=== PATIENT | male | born 1970 | race Caucasian/White ===

== ENCOUNTER 2023-05-09 07:44 | Emergency (ER) | payer MEDICAID ==
[~2023-05-09] VITALS: Ht 167.6 cm; Wt 106.8 kg
[2023-05-09 08:13] LABS: BASOPHILS # (AUTO) 0.1 X10'3 (0-0.2); BASOPHILS % (AUTO) 1.5 % (0-1); EOSINOPHILS # (AUTO) 0.1 X10'3 (0-0.9); EOSINOPHILS % (AUTO) 2.9 % (0-6); HEMOGLOBIN 9.7 g/dl (14.0-17.9); LYMPHOCYTES # (AUTO) 0.7 X10'3 (1.1-4.8); LYMPHOCYTES % (AUTO) 21.9 % (21-51); MEAN CORPUSCULAR HGB CONC 32.2 g/dL (33.0-36.5); MEAN CORPUSCULAR VOLUME 83.9 FL (78-98); MEAN PLATELET VOLUME 8.5 FL (7.4-10.4); MONOCYTES # (AUTO) 0.4 X10'3 (0-0.9); MONOCYTES % (AUTO) 13.2 % (2-12); NEUTROPHILS # (AUTO) 2.1 X10'3 (1.8-7.7); NEUTROPHILS % (AUTO) 60.5 % (42-75); PLATELET COUNT 93 X10'3 (140-440); RED BLOOD COUNT 3.58 X10'6 (4.70-6.10); RED CELL DISTRIBUTION WIDTH 16.1 % (11.5-14.5); WHITE BLOOD COUNT 3.4 X10'3 (4.5-11.0)
[2023-05-09 08:25] LABS: ALANINE AMINOTRANSFERASE 45 U/L (12-78); ALBUMIN 3.1 G/DL (3.4-5.0); ALBUMIN/GLOBULIN RATIO 0.8 (1.1-1.5); ALKALINE PHOSPHATASE 199 IU/L (46-116); ANION GAP 11 (8-16); ASPARTATE AMINO TRANSFERASE 38 U/L (10-37); BILIRUBIN,TOTAL 1.9 MG/DL (0.1-1.0); BLOOD UREA NITROGEN 10 MG/DL (7-18); BUN/CREATININE RATIO 10.6 (10.0-20.0); CALCIUM 9.9 MG/DL (8.5-10.1); CHLORIDE 106 MMOL/L (99-107); CREATININE 0.94 MG/DL (0.60-1.10); GLUCOSE 249 MG/DL (70-104); POTASSIUM 4.1 MMOL/L (3.5-5.1); SODIUM 138 MMOL/L (135-145); TOTAL CARBON DIOXIDE 21.4 MMOL/L (24-32); TOTAL PROTEIN 6.8 G/DL (6.4-8.2); eGFR 84 ML/MIN
[2023-05-09] MEDS ORDERED: furosemide 10 MG/1 ML 10ml inj IV ONE (08:55)
[2023-05-09 10:29] VITALS: BP 132/64
[2023-05-09] MEDS ORDERED: POTA-192 PO (10:58)
[2023-05-09] MEDS ORDERED: GLIP10TA11 PO (10:58)
[2023-05-09] MEDS ORDERED: METF-436 PO (10:58)
[2023-05-09] MEDS ORDERED: METO-384 PO (10:58)
[2023-05-09] MEDS ORDERED: SITA25TA3 PO (10:58)
[2023-05-09] MEDS ORDERED: FURO-150 PO (10:58)
[2023-05-09] MEDS ORDERED: SEMA1PEN3 SQ (10:58)
[2023-05-09] MEDS ORDERED: LISI10TA27 PO (10:58)
== END 2023-05-09 11:04 | disposition home or self-care (01) ==
LOC: ER 07:45
DX: I10 Essential (primary) hypertension (principal); K74.60 Unspecified cirrhosis of liver; J90 Pleural effusion, not elsewhere classified; E78.00 Pure hypercholesterolemia, unspecified; E11.9 Type 2 diabetes mellitus without complications; Z79.899 Other long term (current) drug therapy
CPT/HCPCS: 36415; 71045; 74176; 76705; 80053; 83880; 84484; 85025; 93005; 96374; 99285; J1940

== ENCOUNTER 2023-10-24 12:35 | Emergency (ER) | payer MEDICAID ==
[~2023-10-24] VITALS: Ht 170.2 cm; Wt 108.4 kg
[~2023-10-24 12:35] MED LIST: GLIP10TA11 PO; LISI10TA27 PO; METF-436 PO; METO-384 PO; SEMA1PEN3 SQ
[2023-10-24 13:16] LABS: BASOPHILS % (AUTO) 0.7 % (0-1); EOSINOPHILS # (AUTO) 0.1 X10'3 (0-0.9); EOSINOPHILS % (AUTO) 2.9 % (0-6); HEMATOCRIT 32.4 % (42.0-52.0); HEMOGLOBIN 10.7 g/dl (14.0-17.9); LYMPHOCYTES # (AUTO) 0.8 X10'3 (1.1-4.8); LYMPHOCYTES % (AUTO) 16.8 % (21-51); MEAN CORPUSCULAR HEMOGLOBIN 26.7 PG (27.0-31.0); MEAN CORPUSCULAR HGB CONC 33.1 g/dL (33.0-36.5); MEAN CORPUSCULAR VOLUME 80.7 FL (78-98); MEAN PLATELET VOLUME 8.4 FL (7.4-10.4); MONOCYTES # (AUTO) 0.4 X10'3 (0-0.9); MONOCYTES % (AUTO) 7.6 % (2-12); NEUTROPHILS # (AUTO) 3.4 X10'3 (1.8-7.7); PLATELET COUNT 117 X10'3 (140-440); RED BLOOD COUNT 4.01 X10'6 (4.70-6.10); RED CELL DISTRIBUTION WIDTH 19.6 % (11.5-14.5); WHITE BLOOD COUNT 4.7 X10'3 (4.5-11.0)
[2023-10-24 13:39] LABS: ANISOCYTOSIS 2+; PLATELET ESTIMATE DECREASED
[2023-10-24 13:40] LABS: ALANINE AMINOTRANSFERASE 41 U/L (12-78); ALBUMIN 2.8 G/DL (3.4-5.0); ALBUMIN/GLOBULIN RATIO 0.7 (1.1-1.5); ALKALINE PHOSPHATASE 233 IU/L (46-116); ANION GAP 7 (8-16); ASPARTATE AMINO TRANSFERASE 34 U/L (10-37); BLOOD UREA NITROGEN 6 MG/DL (7-18); BUN/CREATININE RATIO 7.8 (10.0-20.0); BURR CELLS FEW; CALCIUM 9.2 MG/DL (8.5-10.1); CHLORIDE 105 MMOL/L (99-107); CREATININE 0.77 MG/DL (0.60-1.10); ELLIPTOCYTES FEW; GLUCOSE 184 MG/DL (70-104); POTASSIUM 3.6 MMOL/L (3.5-5.1); SCHISTOCYTES FEW; SODIUM 138 MMOL/L (135-145); TOTAL PROTEIN 7.1 G/DL (6.4-8.2); eCRCL 105 ML/MIN; eGFR > 90 ML/MIN
[2023-10-24 13:46] LABS: LIPASE 65 U/L (16-77); PRO BRAIN NATRIURETIC PEPTIDE 92 PG/ML (0-125)
[2023-10-24] MEDS ORDERED: carVEDilol 3.125mg tablet PO ONE (22:20)
[2023-10-24 22:21] VITALS: BP_DIAS 94; O2SAT 97
[2023-10-24 22:22] VITALS: RESP 17
[2023-10-24] MEDS ORDERED: furosemide 20MG tablet PO ONE (22:25)
[2023-10-24] MEDS ORDERED: spironolactone 25 MG tablet PO ONE (22:25)
[2023-10-24] MEDS ORDERED: GLIP10TA21 PO (22:31)
[2023-10-24] MEDS ORDERED: SITA100T15 PO (22:31)
[2023-10-24] MEDS ORDERED: CARV6.253 PO (22:31)
[2023-10-24] MEDS ORDERED: SEMA1PEN3 SUBCUT (22:31)
[2023-10-24] MEDS ORDERED: FURO-150 PO (22:31)
[2023-10-24] MEDS ORDERED: ROSU5TAB12 PO (22:31)
[2023-10-24] MEDS ORDERED: METF-900 PO (22:31)
[2023-10-24] MEDS ORDERED: EMPA25TA PO (22:31)
[2023-10-24 22:47] VITALS: BP_SYST 176; PULSE 94
[2023-10-25 04:46] VITALS: TEMP 98.5
== END 2023-10-25 04:47 | disposition home or self-care (01) ==
LOC: ER 12:35
DX: K74.60 Unspecified cirrhosis of liver (principal); E11.9 Type 2 diabetes mellitus without complications; I10 Essential (primary) hypertension; E78.00 Pure hypercholesterolemia, unspecified; Z91.148 Patient's other noncompliance with medication regimen for other reason; Z79.899 Other long term (current) drug therapy
CPT/HCPCS: 36415; 71045; 80053; 82140; 83690; 83880; 84484; 85008; 85025; 99284

== ENCOUNTER 2025-02-10 09:36 | Inpatient (IN) | payer MEDICAID ==
[~2025-02-10] VITALS: Ht 167.6 cm; Wt 97.6 kg
[~2025-02-10 09:36] MED LIST changes: +CARV6.253 PO; +EMPA25TA PO; +GLIP-299 PO; -GLIP10TA11 PO; +GLIP10TA18 PO; +ROSU5TAB51 PO; +SEMA1PEN3 SUBCUT
[2025-02-10 10:29] LABS: BASOPHILS % (AUTO) 0.6 % (0-1); EOSINOPHILS # (AUTO) 0.2 X10'3 (0-0.9); EOSINOPHILS % (AUTO) 2.8 % (0-6); HEMATOCRIT 34.5 % (42.0-52.0); HEMOGLOBIN 11.5 g/dl (14.0-17.9); LYMPHOCYTES # (AUTO) 1.1 X10'3 (1.1-4.8); LYMPHOCYTES % (AUTO) 18.4 % (21-51); MEAN CORPUSCULAR HEMOGLOBIN 28.3 PG (27.0-31.0); MEAN CORPUSCULAR HGB CONC 33.4 g/dL (33.0-36.5); MEAN CORPUSCULAR VOLUME 84.9 FL (78-98); MEAN PLATELET VOLUME 8.8 FL (7.4-10.4); MONOCYTES # (AUTO) 0.4 X10'3 (0-0.9); NEUTROPHILS # (AUTO) 4.1 X10'3 (1.8-7.7); NEUTROPHILS % (AUTO) 71.2 % (42-75); PLATELET COUNT 111 X10'3 (140-440); RED BLOOD COUNT 4.06 X10'6 (4.70-6.10); RED CELL DISTRIBUTION WIDTH 17.5 % (11.5-14.5); WHITE BLOOD COUNT 5.8 X10'3 (4.5-11.0)
[2025-02-10 10:45] LABS: ALANINE AMINOTRANSFERASE 32 U/L (12-78); ALBUMIN/GLOBULIN RATIO 0.8 (1.1-1.5); ALKALINE PHOSPHATASE 209 IU/L (46-116); ANION GAP 9 (8-16); ASPARTATE AMINO TRANSFERASE 27 U/L (10-37); BILIRUBIN,TOTAL 2.1 MG/DL (0.1-1.0); BLOOD UREA NITROGEN 15 MG/DL (7-18); BUN/CREATININE RATIO 10.2 (10.0-20.0); CALCIUM 9.5 MG/DL (8.5-10.1); CHLORIDE 111 MMOL/L (99-107); CREATININE 1.47 MG/DL (0.60-1.10); GLUCOSE 140 MG/DL (70-104); POTASSIUM 4.9 MMOL/L (3.5-5.1); SODIUM 141 MMOL/L (135-145); TOTAL CARBON DIOXIDE 20.6 MMOL/L (24-32); TOTAL PROTEIN 6.8 G/DL (6.4-8.2); eCRCL 52 ML/MIN; eGFR 50 ML/MIN
[2025-02-10 12:59] LABS: BILIRUBIN,URINE NEGATIVE (Neg); CLARITY,URINE CLEAR (Clear); COLOR,URINE YELLOW (Yellow); GLUCOSE, URINE >=1000 mg/dl (Neg); KETONES,URINE NEGATIVE (Neg); LEUKOCYTE ESTERASE ,URINE NEGATIVE (Neg); NITRITES, URINE NEGATIVE (Neg); OCCULT BLOOD,URINE MODERATE (Neg); PROTEIN,URINE 100 mg/dl (Neg); UROBILINOGEN,URINE 0.2 E.U/dL (0.2-1.0)
[2025-02-10 13:07] LABS: UA COLLECTION TYPE NON-SPECIFIED
[2025-02-10 13:11] LABS: BACTERIA,URINE FEW /HPF (Neg); MUCUS STRANDS NONE SEEN /LPF (Neg); SQUAMOUS EPITHELIAL CELL,UR NONE SEEN /LPF (FEW); WBC,URINE 0-4 /HPF (0-4)
[2025-02-10 13:20] LABS: URINE AMPHETAMINE SCREEN NEGATIVE (Neg); URINE BARBITUATE SCREEN NEGATIVE (Neg); URINE BENZODIAZEPINES SCREEN NEGATIVE (Neg); URINE CANNABINOID SCREEN POSITIVE (Neg); URINE COCAINE SCREEN NEGATIVE (Neg); URINE METHADONE SCREEN NEGATIVE (Neg); URINE OPIATE SCREEN NEGATIVE (Neg); URINE PHENCYCLIDINE SCREEN NEGATIVE (Neg)
[2025-02-10] MEDS ORDERED: potassium Cl 40MEQ/1/2NS 520ml 520 ML IV PRN (13:50)
[2025-02-10] MEDS ORDERED: potassium Cl 20 mEq SR tablet PO PRN ×2 (13:50)
[2025-02-10] MEDS ORDERED: magnesium hydroxide 30ml (MOM) UD suspension PO PRN (13:50)
[2025-02-10] MEDS ORDERED: magnesium sulf-water 2g/50mL 50 ML IV PRN (13:50)
[2025-02-10] MEDS ORDERED: ondansetron/PF 4mg/2ml inj IV PRN (13:50)
[2025-02-10] MEDS ORDERED: ondansetron 4mg rapidly disintigrating tab PO PRN (13:50)
[2025-02-10] MEDS ORDERED: mag hydrox/Alum hydrox/simeth 30ml oral suspension PO PRN (13:50)
[2025-02-10] MEDS ORDERED: magnesium sulf-water 4G/100mL 100 ML IV PRN (13:50)
[2025-02-10 14:09] LABS: INR 1.1 INR; PROTHROMBIN TIME 11.4 SECONDS (9.0-12.0)
[2025-02-10] MEDS ORDERED: dextrose 50%-water 50ml dispensing syringe IV PRN ×2 (14:30)
[2025-02-10] MEDS ORDERED: glucagon, human recombinant 1mg kit SUBCUT PRN (14:30)
[2025-02-10] MEDS ORDERED: DEXTROSE 15 GM of carb/4 tabs (each vial/BOTTLE has 4 tablets) PO PRN ×2 (14:30)
[2025-02-10 15:02] LABS: PRO BRAIN NATRIURETIC PEPTIDE 106 PG/ML (0-125)
[2025-02-10 15:20] LABS: ETHANOL < 10 MG/DL (<10)
[2025-02-10 15:25] VITALS: BP 169/79; PULSE 63; RESP 18; TEMP 99.7; O2SAT 100
[2025-02-10] MEDS: propranolol 10mg tablet PO ONE (16:22)
[2025-02-10] MEDS: ringers solution, lacted 1,000 ML IV SCH (16:22)
[2025-02-10 16:26] VITALS: RESP 16; O2SAT 100
[2025-02-10] MEDS: INSULIN LISPRO 100 UNIT/ML INSULN.PEN MULTI-DOSE SQ SCH (17:00)
[2025-02-10] MEDS ORDERED: hydrALAZINE 20mg/ml inj. IV PRN (17:00)
[2025-02-10 18:00] VITALS: BP 160/78; PULSE 89; RESP 16; TEMP 98.1; O2SAT 98
[2025-02-10] MEDS: docusate sod 100mg capsule PO SCH (20:00)
[2025-02-10] MEDS: K and/or MAG REPLACEMENT MC SCH (20:00)
[2025-02-10] MEDS: CefTRIAXone 2gm/D5W 50ml BAG 50 ML IV ONE (20:48)
[2025-02-10] MEDS: heparin, porcine 5000 units/ml vial SQ SCH (20:49)
[2025-02-10] MEDS: lactulose 20gm/30ml cup PO SCH (20:49)
[2025-02-10] MEDS: propranolol 10mg tablet PO SCH (20:51)
[2025-02-10] MEDS ORDERED: CARV-50 PO (21:11)
[2025-02-10] MEDS ORDERED: FURO-149 PO (21:12)
[2025-02-10] MEDS ORDERED: SITA100T11 PO (21:12)
[2025-02-10] MEDS ORDERED: TIRZ7.5P SQ (21:15)
[2025-02-10] MEDS ORDERED: VALS160T30 PO (21:15)
[2025-02-10] MEDS ORDERED: EPLE25TA10 PO (21:17)
[2025-02-10 22:00] VITALS: BP 131/63; PULSE 83; RESP 13; TEMP 97.6; O2SAT 98
[2025-02-11 06:14] LABS: BASOPHILS % (AUTO) 0.8 % (0-1); EOSINOPHILS # (AUTO) 0.1 X10'3 (0-0.9); EOSINOPHILS % (AUTO) 2.6 % (0-6); HEMOGLOBIN 9.4 g/dl (14.0-17.9); LYMPHOCYTES # (AUTO) 0.9 X10'3 (1.1-4.8); MEAN CORPUSCULAR HEMOGLOBIN 28.6 PG (27.0-31.0); MEAN CORPUSCULAR HGB CONC 33.5 g/dL (33.0-36.5); MEAN CORPUSCULAR VOLUME 85.3 FL (78-98); MEAN PLATELET VOLUME 8.9 FL (7.4-10.4); MONOCYTES # (AUTO) 0.4 X10'3 (0-0.9); MONOCYTES % (AUTO) 9.2 % (2-12); NEUTROPHILS # (AUTO) 2.8 X10'3 (1.8-7.7); NEUTROPHILS % (AUTO) 66.4 % (42-75); PLATELET COUNT 78 X10'3 (140-440); RED BLOOD COUNT 3.28 X10'6 (4.70-6.10); WHITE BLOOD COUNT 4.2 X10'3 (4.5-11.0)
[2025-02-11 06:19] LABS: ALANINE AMINOTRANSFERASE 25 U/L (12-78); ALBUMIN 2.3 G/DL (3.4-5.0); ALBUMIN/GLOBULIN RATIO 0.8 (1.1-1.5); ALKALINE PHOSPHATASE 135 IU/L (46-116); ANION GAP 7 (8-16); ASPARTATE AMINO TRANSFERASE 18 U/L (10-37); BILIRUBIN,TOTAL 2.5 MG/DL (0.1-1.0); BLOOD UREA NITROGEN 16 MG/DL (7-18); BUN/CREATININE RATIO 12.7 (10.0-20.0); CHLORIDE 114 MMOL/L (99-107); CHOLESTEROL 148 MG/DL (0-200); CREATININE 1.26 MG/DL (0.60-1.10); GLUCOSE 111 MG/DL (70-104); HDL CHOLESTEROL 49 MG/DL (35-60); LDL CHOLESTEROL 92 MG/DL (50-100); MAGNESIUM 1.8 MG/DL (1.5-2.4); POTASSIUM 4.4 MMOL/L (3.5-5.1); SODIUM 143 MMOL/L (135-145); TOTAL CARBON DIOXIDE 22.3 MMOL/L (24-32); TOTAL PROTEIN 5.2 G/DL (6.4-8.2); TRIGLYCERIDES 57 MG/DL (20-135); eCRCL 60 ML/MIN; eGFR 60 ML/MIN
[2025-02-11 06:55] VITALS: BP 160/87; PULSE 76; RESP 14; TEMP 98.6; O2SAT 98
[2025-02-11 06:57] LABS: HEMOGLOBIN A1C 6.2 % (4.5-6.2)
[2025-02-11] MEDS: CefTRIAXone 2gm/D5W 50ml BAG 50 ML IV SCH (07:31)
[2025-02-11] MEDS: amLODIPine 5mg tablet PO SCH (07:32)
[2025-02-11] MEDS: EMPAGLIFLOZIN 25 MG TABLET PO SCH (07:32)
[2025-02-11] MEDS: acetaminophen 325mg tablet PO PRN (07:40)
[2025-02-11 08:00] VITALS: RESP 15; O2SAT 97
[2025-02-11] MEDS: losartan 50mg tablet PO STA (08:56)
[2025-02-11] MEDS: HYDROchlorothiazide 25mg tablet PO ONE (08:56)
[2025-02-11] MEDS ORDERED: LOSA50TA64 PO (09:46)
[2025-02-11] MEDS ORDERED: PROP10TA10 PO (09:46)
[2025-02-11] MEDS ORDERED: CEFD300C3 PO (09:46)
[2025-02-11] MEDS ORDERED: NOR5T PO (09:46)
[2025-02-11] MEDS ORDERED: HYDR25TA4 PO (09:46)
[2025-02-11 09:48] VITALS: BP 150/70
[2025-02-11 10:00] VITALS: BP 160/79; PULSE 77; RESP 17; TEMP 97.9; O2SAT 98
[2025-02-12] MEDS ORDERED: HYDROchlorothiazide 25mg tablet PO SCH (08:00)
[2025-02-12] MEDS ORDERED: losartan 50mg tablet PO SCH (08:00)
[2025-02-12 09:12] LABS: HBSAG SCREEN Negative (Negative); HEP A AB, IGM Negative (Negative); HEP B CORE AB, IGM Negative (Negative); HEP B SURF AB Reactive (.); HEPATITIS C VIRUS ANTIBODY Non Reactive (Non Reactive)
== END 2025-02-11 11:10 | disposition home or self-care (01) | DRG 52 ==
LOC: ER 09:37 → ED HOLD 13:55 → ORTHO 4S 15:12
PROVIDERS: ADMIT Nurse Practitioner Family; ATTEND Nurse Practitioner Family
DX: G93.41 Metabolic encephalopathy (principal); K76.82 Hepatic encephalopathy; N17.9 Acute kidney failure, unspecified; N18.9 Chronic kidney disease, unspecified; K74.60 Unspecified cirrhosis of liver; E11.22 Type 2 diabetes mellitus with diabetic chronic kidney disease; I12.9 Hypertensive chronic kidney disease with stage 1 through stage 4 chronic kidney disease, or unspecified chronic kidney disease; N18.30 Chronic kidney disease, stage 3 unspecified; E78.00 Pure hypercholesterolemia, unspecified; F10.20 Alcohol dependence, uncomplicated; F19.90 Other psychoactive substance use, unspecified, uncomplicated; I16.1 Hypertensive emergency; E66.811 Obesity, class 1; Z68.34 Body mass index [BMI] 34.0-34.9, adult; Z79.84 Long term (current) use of oral hypoglycemic drugs; Z79.899 Other long term (current) drug therapy; Z87.891 Personal history of nicotine dependence
CPT/HCPCS: 36415; 70450; 71046; 76705; 80053; 80061; 80305; 80320; 81001; 82140; 82948; 83036; 83605; 83735; 83880; 84145; 85025; 85610; 86705; 86706; 86709; 86803; 87081; 87340; 87522; 93005; 93880; 97116; 97161; 97530; 99285; G0378; J0696; J1644; J1815; J7120

== ENCOUNTER 2025-06-28 09:56 | Emergency (ER) | payer MEDICAID ==
[~2025-06-28] VITALS: Ht 165.1 cm; Wt 102.0 kg
[~2025-06-28 09:56] MED LIST changes: -CARV6.253 PO; +CEFD300C3 PO; +EPLE25TA10 PO; -GLIP-299 PO; -GLIP10TA18 PO; +HYDR25TA4 PO; -LISI10TA27 PO; +LOSA50TA64 PO; -METF-436 PO; -METO-384 PO; +NOR5T PO; +PROP10TA10 PO; -ROSU5TAB51 PO; -SEMA1PEN3 SQ; -SEMA1PEN3 SUBCUT; +SITA100T11 PO; +TIRZ7.5P SQ
[2025-06-28 10:16] VITALS: TEMP 97.9
--- NOTE | 2025-06-28 11:46 | Physician Documentation ---
History of Present Illness ~ Chief Complaint: Bite-animal Stated Complaint: CAT BITE Time Seen by MD: 11:45 HPI 54-year-old male who presents with the emergency department for accompanied by his . He reports that he was bit by a cat several days ago on right hand near [facility]. Mentioned for the last couple of days. He reports that he has persisting pain and swelling. Denies chills or fever, nausea or vomiting. Tetanus within 5 years?: Yes Medication Reconciliation Allergies: Coded Allergies: No Known Allergies (Unverified , 05/09/23) Scheduled Amlodipine Besylate (Amlodipine Besylate), 10 MG PO DAILY Cefdinir (Cefdinir), 1 CAP PO Q12H Empagliflozin (Jardiance), 1 TAB PO DAILY Eplerenone (Eplerenone), 1 TAB PO DAILY, (Reported) Hydrochlorothiazide (Hydrochlorothiazide), 25 MG PO DAILY Losartan Potassium (Losartan Potassium), 100 MG PO DAILY Naproxen (Naproxen), 1 TAB PO Q12H Propranolol Hcl* (Inderal*), 10 MG PO TID Sitagliptin Phosphate (Januvia), 1 TAB PO DAILY, (Reported) Tirzepatide (Mounjaro), 7.5 MG SQ Q7D, (Reported) Past Medical History Past Medical History: High Cholesterol, Hypertension, Cirrohsis, *ENDOCRINE*, Diabetes Past Surgical History: other Patient History: FH: cirrhosis MOTHER FH: colon cancer MOTHER Alcohol Use: Rarely Drug Use: none Lives with: Spouse Lives In: Home Review of Systems ROS As stated above in the HPI, otherwise all systems are reviewed and negative. Physical Exam Vital Signs: Temperature: 97.9, Source: Temporal, Heart Rate: 77, Respiratory Rate: 18, BP: 161/89, Pulse Oximetry: 97, Weight: 102.000 Oxygen Flow Rate: 0 Physical Exam General: Alert, no apparent distress. HEENT: PERRL, EOMI, no injection, moist mucous membranes. Neck: Full range of motion. Respiratory: Lungs clear, no respiratory distress. Chest: No accessory muscle use. Cardiovascular: Regular rate and rhythm, no murmurs. Gastrointestinal: Soft, nontender, nondistended. Bowels sounds present. Extremities: Reduced range of motion to the right hand. 1+ erythema to hand. No firm fluid collection suggestive of an abscess. Neurologic: Oriented x4. Psychiatric: Normal mood and affect. Skin: Normal color, warm and dry. No edema, no ecchymosis. Progress Results/Orders Results/Orders Orders - SIMIN MINOR NP Hand, Complete (3vw Min) (06/28/25 12:18) Completed Orders - SIMIN MINOR [employer] OPERATOR Hand, Complete (3vw Min) (06/28/25 12:18) Ceftriaxone Im Kit W/Lidocaine (Rocephin (06/28/25 12:55) Medications Received in ER Medications (Trade) Dose Ordered Sig/Romaine Route PRN Reason Start Time Stop Time Status Last Admin Dose Admin (Rocephin 1GM IM kit (w/lidocaine diluent)) 1,000 mg ONCE ONCE IM 06/28/25 12:55 06/28/25 12:56 DC 06/28/25 13:05 1,000 MG Vital Signs 06/28/25 06/28/25 10:16 12:27 Temp 97.9 Pulse 77 78 Resp 18 18 B/P (MAP) 161/89 176/97 (123) Pulse Ox 97 98 O2 Flow Rate 0 0 EKG/XRAY/CT/US/VASC/MRI Bone/Soft Tissue X-Ray (Ext.) : Additional Comment [address] [address] DIAGNOSTIC RADIOLOGY Patient: ISRA FLORES Medical Record: [id number] [facility] : 1970, Age: 54 Sex: Male Location: ER Patient Status: REG ER Service Date/Time: 06/28/25/ 1218 Ordering Physician: SIMIN MINOR NP Exam: HAND, COMPLETE (3VW MIN) Indication: foreign body Technique: DI HAND, COMPLETE (3VW MIN)HAND 3VW Comparison: None FINDINGS/IMPRESSION: Possible fracture of the base of the 5th metacarpal bone with proximal articular distention. Correlate with point tenderness symptoms. There is surrounding soft tissue edema. Dorsal right hand soft tissue edema. [id number] degenerate changes right wrist, right hand. Electronically Signed by:VANIA BUTLER MD Date & Time: 06/28/251312 Dictated by: VANIA BUTLER MD Dictation date and time: 06/28/25 1313 Primary Care Provider: NO PRIMARY CARE PROVIDER cc: SIMIN MINOR NP ~ Medical Decision Making Additional Comment Xray did not show foreign body. No firm erythematous mass to suggest abscess. Full ROM of fingers. Xray showed possible fx base 5th metacarpal but patient did not have point tenderness to this area. Dose of ceftriaxone 1 gram IM in ER and is to start warm soaks, complete Augmentin as prescribed, return if worse. Stephani ent discharged with understanding of instructions and in good condition from the ER. Departure Time of Disposition: 12:51 Disposition: HOME / SELF CARE / HOMELESS Impression: Primary Impression: Cat bite Additional Impression: Cellulitis Condition: Stable Discharge Instructions: Animal Bite, Adult, Cellulitis, Adult Additional Instructions: Continue the Amoxicillin/Clavulanate. Elevate the hand frequently, above level of heart. Apply warm moist cloths to bite areas x 15 minutes at least 4x a day. Followup with primary care for recheck within the next few days. Return if worse. Referrals: NO PRIMARY CARE PROVIDER (PCP) Prescriptions Naproxen (Naproxen) 500 Mg Tablet 1 TAB PO Q12H, #20 TAB Prov: SIMIN MINOR NP 06/28/25 Education Educated: Patient Educated regarding: diagnosis, treatment, prognosis, need for follow up Signature Scribe Signature: x Attestation: The note accurately reflects work and decisions made by me.Simin Mcgovern NP 06/28/25 13:23 SIMIN MINOR NP Jun 28, 2025 11:46
[2025-06-28 12:27] VITALS: RESP 18
[2025-06-28] MEDS ORDERED: NAPR-56 PO (12:52)
[2025-06-28] MEDS: CefTRIAXone 1000mg IM Kit (w/lidocaine diluent) IM ONE (13:05)
--- NOTE | 2025-06-28 13:12 | RADIOLOGY REPORT ---
Indication: foreign body Technique: DI HAND, COMPLETE (3VW MIN)HAND 3VW Comparison: None FINDINGS/IMPRESSION: Possible fracture of the base of the 5th metacarpal bone with proximal articular distention. Correla te with point tenderness symptoms. There is surrounding soft tissue edema. Dorsal right hand soft tis sharon edema. [id number] degenerate changes right wrist, right hand.
[2025-06-28 13:20] VITALS: BP 162/93; PULSE 65; O2SAT 100
== END 2025-06-28 13:21 | disposition home or self-care (01) ==
LOC: ER 09:57
DX: L03.113 Cellulitis of right upper limb (principal); E11.9 Type 2 diabetes mellitus without complications; E78.00 Pure hypercholesterolemia, unspecified; I10 Essential (primary) hypertension; Z79.899 Other long term (current) drug therapy; W55.01XA Bitten by cat, initial encounter; Y93.89 Activity, other specified; Y92.89 Other specified places as the place of occurrence of the external cause; Y99.8 Other external cause status
CPT/HCPCS: 73130; 96372; 99283; J0696